=== PATIENT | female | born 1980 | race Caucasian/White ===

== ENCOUNTER → 2018-02-06 | Outpatient (CLI) | payer OTHER ==
--- NOTE | 2018-02-06 14:44 | MR ---
EXAMINATION TYPE: MR knee LT wo con DATE OF EXAM: 02/06/2018 COMPARISON: NONE HISTORY: Left knee pain TECHNIQUE: Multiplanar, multisequence imaging of the left knee is performed without IV contrast. FINDINGS: MEDIAL MENISCUS: Some linear increased signal at the posterior horn of the meniscus may contact the a rticular surface on sagittal image 23, fluid signal posterior to the meniscus at this level could rep resent a small meniscal cyst, anterior horn is intact LATERAL MENISCUS: Anterior and posterior horns are intact without tear. CRUCIATE LIGAMENTS: The anterior and posterior cruciate ligaments are intact and unremarkable. COLLATERAL LIGAMENTS: The medial collateral ligament and lateral collateral ligament complex are inta ct and unremarkable. EXTENSOR MECHANISM: Visualized quadriceps and patellar tendons are intact. EFFUSION: Minimal joint effusion. POPLITEAL CYST: No popliteal/choi cyst. TRICOMPARTMENT SPACES: Intact CARTILAGE: Signal is maintained BONE MARROW SIGNAL: No focal abnormal marrow signal is appreciated. OTHER: No additional significant abnormality is appreciated. IMPRESSION: Difficult to exclude a small tear of the posterior horn of the medial meniscus. Minimal joint effusio n.
--- NOTE | 2018-02-06 14:53 | MR ---
EXAMINATION TYPE: MR knee RT wo con DATE OF EXAM: 02/06/2018 COMPARISON: NONE HISTORY: Right knee pain TECHNIQUE: Multiplanar, multisequence imaging of the right knee is performed without IV contrast. FINDINGS: MEDIAL MENISCUS: Some linear increased signal is noted within the medial meniscus posterior horn, tho ugh a clear communication with the articular surface is not seen with certainty LATERAL MENISCUS: Anterior and posterior horns are intact without tear. CRUCIATE LIGAMENTS: The anterior and posterior cruciate ligaments are intact and unremarkable. COLLATERAL LIGAMENTS: The medial collateral ligament and lateral collateral ligament complex are inta ct and unremarkable. EXTENSOR MECHANISM: Visualized quadriceps and patellar tendons are intact. EFFUSION: Minimal joint fluid present POPLITEAL CYST: No popliteal/choi cyst. TRICOMPARTMENT SPACES: Maintained CARTILAGE: Articular cartilage signal is intact BONE MARROW SIGNAL: No focal abnormal marrow signal is appreciated. OTHER: No additional significant abnormality is appreciated. IMPRESSION: No definite meniscal tear as described. Minimal joint fluid.
== END | disposition home or self-care (01) ==
LOC: RADMRIMAIN 12:13
PROVIDERS: ATTEND Family Medicine
DX: M25.462 Effusion, left knee (principal); M25.461 Effusion, right knee; M17.0 Bilateral primary osteoarthritis of knee

== ENCOUNTER → 2018-04-18 | Outpatient (CLI) | payer OTHER ==
--- NOTE | 2018-04-19 04:56 | MR ---
EXAMINATION TYPE: MR shoulder RT wo con DATE OF EXAM: 04/18/2018 COMPARISON: None HISTORY: Rt shoulder pain, decreased ROM x 2 years TECHNIQUE: Multiplanar, multisequence imaging of the right shoulder is performed without contrast. FINDINGS: The biceps tendon is intact. Subscapularis tendon is intact. The anterior and posterior glenoid usama appear intact. Shoulder joint space is fairly normal. There is some patchy increased signal in the s upraspinatus tendon at the greater tuberosity of the humerus. There is no retraction. There is fluid in the subacromial joint space. There is small shoulder joint effusion. I see no bony destructive pro cess. The acromioclavicular joint appears normal. IMPRESSION: There is moderate rotator cuff tear with full-thickness abnormal signal through the supraspinatus ten don. No retraction. Shoulder joint effusion consistent with synovitis. No fracture.
--- NOTE | 2018-04-21 01:17 | MR ---
EXAMINATION TYPE: MR lumbar spine wo con DATE OF EXAM: 04/18/2018 COMPARISON: None HISTORY: LBP, RLE radic x several years TECHNIQUE: Multiplanar, multisequence images of the lumbar spine were acquired. The lumbar vertebra have normal alignment. There is mild decreased signal at L4-5 disc. There is smal l posterior midline disc herniation at L4-5. Lumbar nerve roots appear normal. The neural foramina ar e fairly well-maintained. There is no compression fracture. There is no paraspinal mass. Sacroiliac j oints are intact. I see no bony destructive process. 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 No significant spinal stenosis. No fracture.
== END | disposition home or self-care (01) ==
LOC: RADMRIMAIN 20:27
PROVIDERS: ATTEND Family Medicine
DX: S46.019A Strain of muscle(s) and tendon(s) of the rotator cuff of unspecified shoulder, initial encounter (principal); M51.26 Other intervertebral disc displacement, lumbar region; M47.816 Spondylosis without myelopathy or radiculopathy, lumbar region
CPT/HCPCS: 72148